=== PATIENT | male | born 1995 | race Caucasian/White ===

== ENCOUNTER 2017-08-25 15:23 | Emergency (ER) | payer BC, OTHER ==
[~2017-08-25] VITALS: Ht 180.3 cm; Wt 59.0 kg
[~2017-08-25 15:23] MED LIST: CARDECDMS PO; Z.0.NO CURRENT MEDS; ZITH250T PO
[2017-08-25 15:24] VITALS: BP 138/66; PULSE 100; RESP 20; TEMP 99.8; O2SAT 98
[2017-08-25 16:06] VITALS: BP 118/59; PULSE 87; RESP 17; O2SAT 100
[2017-08-25 16:22] LABS: AUTOMATED NEUTROPHIL # 16.4 TH/MM3 (1.8-7.7); BASOPHIL % 0.2 % (0.0-2.0); EOSINOPHIL % 0.1 % (0.0-4.0); HEMOGLOBIN 16.6 GM/DL (13.0-17.0); LYMPH % 3.2 % (9.0-44.0); LYMPHOCYTE # 0.6 TH/MM3 (1.0-4.8); MEAN CELL VOLUME 84.7 FL (80.0-100.0); MEAN CORPUSCULAR HEMOGLOBIN 30.5 PG (27.0-34.0); MEAN PLATELET VOLUME 7.8 FL (7.0-11.0); MONO % 5.3 % (0.0-8.0); NEUT % 91.2 % (16.0-70.0); PLATELET COUNT 232 TH/MM3 (150-450); RED BLOOD COUNT 5.43 MIL/MM3 (4.50-5.90); RED CELL DISTRIBUTION WIDTH 13.2 % (11.6-17.2)
[2017-08-25 16:28] LABS: MEAN CORPUSCULAR HGB CONC 36.1 % (32.0-36.0)
[2017-08-25 16:56] LABS: ALBUMIN 4.7 GM/DL (3.4-5.0); AST (GOT) 17 U/L (15-37); BICARBONATE 26.5 MEQ/L (21.0-32.0); BLOOD UREA NITROGEN 17 MG/DL (7-18); CALCIUM 9.3 MG/DL (8.5-10.1); CHLORIDE 104 MEQ/L (98-107); CREATININE 0.92 MG/DL (0.60-1.30); GLOMERULAR FILTRATION RATE 101 ML/MIN (>89); GLUCOSE,RANDOM 94 MG/DL (74-106); SODIUM (NA) 138 MEQ/L (136-145)
[2017-08-25 16:58] LABS: ALKALINE PHOSPHATASE 64 U/L (45-117); ALT (GPT) 12 U/L (12-78); TOTAL BILIRUBIN ADULT 2.6 MG/DL (0.2-1.0); TOTAL PROTEIN 8.4 GM/DL (6.4-8.2)
[2017-08-25 17:03] LABS: BANDS 8 % (0-6); LYMPHOCYTES 4 % (9-44); MONOCYTES 4 % (0-8); NEUTROPHIL # MANUAL DIFF 16.6 TH/MM3 (1.8-7.7); POLYS (SEG NEUTROPHILS) 84 % (16-70)
[2017-08-25 17:39] LABS: BILIRUBIN, URINE NEG (NEG); BLOOD, URINE NEG (NEG); GLUCOSE,URINE NEG (NEG); KETONE, URINE 80 mg/dL (NEG); MUCUS URINE MANY /lpf (OCC); NITRITE,URINE NEG (NEG); PH, URINE 8.5 (5.0-8.5); URINE COLOR YELLOW (YELLW/STRAW); URINE LEUKOCYTE ESTERASE NEG (NEG)
[2017-08-25] MEDS ORDERED: MULT1TAB46 PO (18:26)
[2017-08-25] MEDS ORDERED: DIATRIZOATE MEGLUM/DIATRIZOATE SOD 9 ML CUP PO ONE (18:45)
[2017-08-25] MEDS ORDERED: SODIUM CHLOR 0.9% 1000 ML INJ 1,000 ML IV ONE (18:45)
--- NOTE | 2017-08-25 20:03 | PD ---
HPI Chief Complaint: GI Complaint Time Seen by Provider: 18:31 Travel History International Travel<30 days: No Contact w/Intl Traveler<30days: No Traveled to known affect area: No History of Present Illness HPI 22-year-old male here for evaluation of abdominal pain, nausea, and vomiting. Symptoms started this morning. Abdominal pain was severe and the patient noticed that he cannot get any comfortable position. Pain was periumbilical, sharp and pressure-like, nonradiating, worse with movements. No history of abdominal surgeries. His labs are performed in triage and show a leukocytosis. After 3 hours of waiting in the waiting room, the patient was brought back to an exam room where I evaluated him and he states his pain has significantly improved. No urinary symptoms. He is unsure if he has had a fever, however states he feels warm. Emesis was bilious, nonbloody. No diarrhea. PFSH Past Medical History Medical History: Denies Significant Hx Diminished Hearing: No Tetanus Vaccination: Unknown Influenza Vaccination: No Past Surgical History Surgical History: No Previous Surgery Social History Alcohol Use: Yes (occasionally) Tobacco Use: No Substance Use: No Allergies-Medications (Allergen,Severity, Reaction): Coded Allergies: penicillin G (Unverified Allergy, Severe, HIVES, 08/25/17) Reported Meds & Prescriptions Reported Meds & Active Scripts Active Reported Multi Vitamin Daily (Multiple Vitamin) 1 Tab Tab 1 Tab PO DAILY Review of Systems Except as stated in HPI: all other systems reviewed are Neg Physical Exam Narrative GENERAL: Well-developed, well-nourished, comfortable, no apparent distress. SKIN: Focused skin assessment warm/dry. HEAD: Atraumatic. Normocephalic. EYES: Pupils equal and round. No scleral icterus. No injection or drainage. ENT: No nasal bleeding or discharge. Mucous membranes pink and moist. NECK: Trachea midline. No JVD. CARDIOVASCULAR: Regular rate and rhythm. RESPIRATORY: No accessory muscle use. Clear to auscultation. Breath sounds equal bilaterally. GASTROINTESTINAL: Abdomen soft, nondistended. Mild periumbilical and right lower quadrant tenderness without peritoneal signs. No hernias. Rest of abdomen is soft and nontender. Normal bowel sounds. MUSCULOSKELETAL: No obvious deformities. No clubbing. No cyanosis. No edema. NEUROLOGICAL: Awake and alert. No obvious cranial nerve deficits. Motor grossly within normal limits. Normal speech. PSYCHIATRIC: Appropriate mood and affect; insight and judgment normal. Data Data Last Documented VS Vital Signs Date Time Temp Pulse Resp B/P (MAP) Pulse Ox O2 Delivery O2 Flow Rate FiO2 08/25/17 16:06 87 17 118/59 (78) 100 08/25/17 15:24 99.8 Room Air Orders Orders Complete Blood Count With Diff (08/25/17 15:42) Comprehensive Metabolic Panel (08/25/17 15:42) Urinalysis - C+S If Indicated (08/25/17 15:42) Iv Access Insert/Monitor (08/25/17 15:42) Oxygen Administration (08/25/17 15:42) Oximetry (08/25/17 15:42) Lipase (08/25/17 15:42) Ct Abd/Pel W Iv Contrast(Rout) (08/25/17 18:35) Diatrizoate Liq ( Gastroview Liq) (08/25/17 18:45) Influenzae A/B Antigen (08/25/17 18:35) Sodium Chlor 0.9% 1000 Ml Inj (Ns 1000 M (08/25/17 18:45) Oral Contrast - Adult (08/25/17 18:57) Iohexol 350 Inj (Omnipaque 350 Inj) (08/25/17 20:38) Complete Blood Count With Diff (08/25/17 21:24) Labs Laboratory Tests Test 08/25/17 16:00 08/25/17 17:15 08/25/17 21:30 White Blood Count 18.0 TH/MM3 19.1 TH/MM3 Red Blood Count 5.43 MIL/MM3 5.03 MIL/MM3 Hemoglobin 16.6 GM/DL 15.1 GM/DL Hematocrit 46.0 % 42.6 % Mean Corpuscular Volume 84.7 FL 84.8 FL Mean Corpuscular Hemoglobin 30.5 PG 30.1 PG Mean Corpuscular Hemoglobin Concent 36.1 % 35.5 % Red Cell Distribution Width 13.2 % 12.8 % Platelet Count 232 TH/MM3 273 TH/MM3 Mean Platelet Volume 7.8 FL 8.0 FL Neutrophils (%) (Auto) 91.2 % 87.6 % Lymphocytes (%) (Auto) 3.2 % 6.8 % Monocytes (%) (Auto) 5.3 % 5.3 % Eosinophils (%) (Auto) 0.1 % 0.1 % Basophils (%) (Auto) 0.2 % 0.2 % Neutrophils # (Auto) 16.4 TH/MM3 16.7 TH/MM3 Lymphocytes # (Auto) 0.6 TH/MM3 1.3 TH/MM3 Monocytes # (Auto) 1.0 TH/MM3 1.0 TH/MM3 Eosinophils # (Auto) 0.0 TH/MM3 0.0 TH/MM3 Basophils # (Auto) 0.0 TH/MM3 0.0 TH/MM3 CBC Comment AUTO DIFF DIFF FINAL Differential Total Cells Counted 100 Neutrophils % (Manual) 84 % Band Neutrophils % 8 % Lymphocytes % 4 % Monocytes % 4 % Neutrophils # (Manual) 16.6 TH/MM3 Differential Comment FINAL DIFF MANUAL Platelet Estimate NORMAL Platelet Morphology Comment NORMAL Red Cell Morphology Comment NORMAL Blood Urea Nitrogen 17 MG/DL Creatinine 0.92 MG/DL Random Glucose 94 MG/DL Total Protein 8.4 GM/DL Albumin 4.7 GM/DL Calcium Level 9.3 MG/DL Alkaline Phosphatase 64 U/L Aspartate Amino Transf (AST/SGOT) 17 U/L Alanine Aminotransferase (ALT/SGPT) 12 U/L Total Bilirubin 2.6 MG/DL Sodium Level 138 MEQ/L Potassium Level 3.9 MEQ/L Chloride Level 104 MEQ/L Carbon Dioxide Level 26.5 MEQ/L Anion Gap 8 MEQ/L Estimat Glomerular Filtration Rate 101 ML/MIN Lipase 86 U/L Urine Color YELLOW Urine Turbidity CLEAR Urine pH 8.5 Urine Specific Diagonal 1.027 Urine Protein 100 mg/dL Urine Glucose (UA) NEG mg/dL Urine Ketones 80 mg/dL Urine Occult Blood NEG Urine Nitrite NEG Urine Bilirubin NEG Urine Urobilinogen 2.0 MG/DL Urine Leukocyte Esterase NEG Urine WBC LESS THAN 1 /hpf Urine Mucus MANY /lpf Microscopic Urinalysis Comment CULT NOT INDICATED MDM Medical Decision Making Medical Screen Exam Complete: Yes Emergency Medical Condition: Yes Differential Diagnosis Appendicitis, colitis, cystitis, UTI, gastroenteritis Narrative Course Initial vital signs show heart rate 100, blood pressure 138/66, pulse ox 98% on room air, oral temp of 99.8F. CBC: WBC 18, hemoglobin 16.6, hematocrit 46, platelets 232, neutrophils 91.2%, band neutrophils 8%, lymphocytes 4%. CMP is unremarkable. UA shows 80 ketones, 100 protein, many mucus, not suggestive of UTI. CT abdomen pelvis: CONCLUSION: 1. Appendix is not directly visualized. However, there is no significant pericecal inflammatory change. 2. Otherwise, no acute CT abnormality in the abdomen or pelvis. Both the patient and the patient's mother were made aware of all findings. The patient's mother is a nurse. The patient reports that he feels significantly improved and does not have any abdominal pain. He actually states that the pain resolved while waiting in the waiting room. He was able to tolerate both bottles of oral contrast with Crystal light and has not vomited while in the emergency department. On physical exam he has no abdominal tenderness or peritoneal signs. Both the patient and the patient's mom are fully aware that at this point I cannot completely rule out appendicitis. They are both hesitant about repeating a CT at this time because of fear of radiation exposure. We came up with a plan to repeat his CBC, and after this is done will discuss further management options Repeat CBC: WBC 19.1, hemoglobin 15.1, hematocrit 42.6, platelets 273, neutrophils 87.6%. The patient and the patient's mother were made aware of this repeat CBC. Again the patient reports feeling well and has no pain or tenderness on exam. There are no peritoneal signs. He has occasional cramping sensation in his right lower quadrant. I discussed the CT findings with the reading radiologist Dr. Carney , and told him that I would like to repeat CT scan. He recommends repeating the CT scan in the morning. I discussed this with the patient and the patient' s mother, and they prefer to be discharged home as the patient feels significantly improved and is currently pain-free. I told him that I cannot completely rule out appendicitis and do not have an answer for the patient's fever, abdominal pain, and leukocytosis. At this point they are comfortable with going home and will return for evaluation for any concerning symptoms. Diagnosis Primary Impression: Abdominal pain Qualified Codes: R10.9 - Unspecified abdominal pain Additional Impressions: Fever Qualified Codes: R50.9 - Fever, unspecified Nausea and vomiting Qualified Codes: R11.2 - Nausea with vomiting, unspecified Referrals: Primary Care Physician 2 days Additional Instructions: Follow-up with a primary care physician this week. Return to the emergency department for worsening symptoms or any other concerns as discussed. Disposition: 01 DISCHARGE HOME Condition: Stable José Miguel Ko MD Aug 25, 2017 20:03
[2017-08-25] MEDS ORDERED: IOHEXOL 350 MG/ML 10 ML VIAL (for RAD DIAG) IVCONTRAST ONE (20:38)
--- NOTE | 2017-08-25 21:03 | RADRPT ---
EXAM DATE/TIME: 08/25/2017 20:32 [facility] COMPARISON: CT ABDOMEN & PELVIS W CONTRAST, July 16, 2011, 14:30. INDICATIONS : Abdominal pain with nausea and vomiting. IV CONTRAST: 100 cc Omnipaque 350 (iohexol) IV ORAL CONTRAST: Prescribed oral contrast ingested. RADIATION DOSE: 4.54 CTDIvol (mGy) MEDICAL HISTORY : None SURGICAL HISTORY : None. ENCOUNTER: Initial ACUITY: 1 day PAIN SCALE: 7/10 LOCATION: abdomen TECHNIQUE: Volumetric scanning of the abdomen and pelvis was performed. Using automated exposure control and ad justment of the mA and/or kV according to patient size, radiation dose was kept as low as reasonably achievable to obtain optimal diagnostic quality images. DICOM format image data is available electro nically for review and comparison. FINDINGS: LOWER LUNGS: The visualized lower lungs are clear. LIVER: Homogeneous density without lesion. There is no dilation of the biliary tree. No calcified gallston es. SPLEEN: Normal size without lesion. PANCREAS: Within normal limits. KIDNEYS: Normal in size and shape. There is no mass, stone or hydronephrosis. ADRENAL GLANDS: Within normal limits. VASCULAR: There is no aortic aneurysm. BOWEL/MESENTERY: The stomach, small bowel, and colon demonstrate no acute abnormality. The appendix is not directly v isualized. However, there is no significant pericecal inflammatory change or pericecal nodes. There i s no free intraperitoneal air or fluid. ABDOMINAL WALL: Within normal limits. RETROPERITONEUM: There is no lymphadenopathy. BLADDER: No wall thickening or mass. REPRODUCTIVE: Within normal limits. INGUINAL: There is no lymphadenopathy or hernia. MUSCULOSKELETAL: Within normal limits for patient age. CONCLUSION: 1. Appendix is not directly visualized. However, there is no significant pericecal inflammatory tellez e. 2. Otherwise, no acute CT abnormality in the abdomen or pelvis. Driss Lee MD on August 25, 2017 at 20:55 Board Certified Radiologist. This report was verified electronically.
[2017-08-25 22:00] LABS: AUTOMATED NEUTROPHIL # 16.7 TH/MM3 (1.8-7.7); BASOPHIL % 0.2 % (0.0-2.0); EOSINOPHIL % 0.1 % (0.0-4.0); HEMATOCRIT 42.6 % (39.0-51.0); HEMOGLOBIN 15.1 GM/DL (13.0-17.0); LYMPH % 6.8 % (9.0-44.0); LYMPHOCYTE # 1.3 TH/MM3 (1.0-4.8); MEAN CELL VOLUME 84.8 FL (80.0-100.0); MEAN CORPUSCULAR HEMOGLOBIN 30.1 PG (27.0-34.0); MEAN CORPUSCULAR HGB CONC 35.5 % (32.0-36.0); MONO % 5.3 % (0.0-8.0); NEUT % 87.6 % (16.0-70.0); PLATELET COUNT 273 TH/MM3 (150-450); RED BLOOD COUNT 5.03 MIL/MM3 (4.50-5.90); RED CELL DISTRIBUTION WIDTH 12.8 % (11.6-17.2); WHITE BLOOD COUNT 19.1 TH/MM3 (4.0-11.0)
== END 2017-08-26 01:49 | disposition home or self-care (01) ==
LOC: NEPD 15:23
DX: R10.9 Unspecified abdominal pain (principal); R50.9 Fever, unspecified; R11.2 Nausea with vomiting, unspecified; Z88.0 Allergy status to penicillin
CPT/HCPCS: 74177; 80053; 81001; 83690; 85025; 85027; 87804; 96360; 96361; 99284; J7030; Q9963; Q9967; 85007